=== PATIENT | female | born 1955 | race Caucasian/White ===

== ENCOUNTER → 2018-07-11 | Outpatient (CLI) | payer MEDICARE ==
--- NOTE | 2018-07-11 16:11 | Diagnostic Imaging Report ---
EXAMINATION: Low-dose lung cancer screening CT chest. INDICATION: 47-[id number]-[id number] smoking history. FINDINGS: Routine images of the thorax were obtained using the low-dose lung cancer screening protocol. There are no prior studies available for comparison. There is a small roughly 6 mm triangular opacity in the left upper lobe (image 123 of 285). This finding is of uncertain etiology although most likely benign. No other parenchymal nodule is noted. The lungs are clear. There is no evidence for failure, pneumonia, or for a pleural effusion to suggest an acute abnormality. The heart size is within normal limits. Coronary artery calcifications are evident. The aorta is not abnormally dilated. There is no obvious mediastinal or hilar adenopathy. There is a roughly 1 cm calcified node in the left infrahilar region. The thyroid gland is not well visualized. There is no obvious breast mass. According to our records, the patient has not had a mammogram. If the patient has had a recent (within the last year) mammogram elsewhere, then no further imaging will be necessary. Otherwise, mammography should be obtained. The sections through the upper abdomen fail to show any evidence for an acute abnormality. The bone windows are unremarkable for a fracture or for a destructive lesion. IMPRESSION: 1. There is a small parenchymal opacity in the left upper lobe. This is most likely a benign process. A six-month follow-up low-dose lung cancer screening exam will be recommended for further evaluation. 2. There is no acute cardiopulmonary abnormality noted. 3. The heart size is within normal limits but there is coronary artery disease. 4. There is no obvious breast mass. Recommendations as above. LUNG-RADS CATEGORY: 3 - Probably benign. Solid nodule(s): >6mm to <8mm at baseline or new 4mm to <6mm. 6 month LDCT. Dictated by: Dictated on workstation # [id number]
== END ==
LOC: RAD 13:08
PROVIDERS: ATTEND Physician Assistant
DX: Z12.2 Encounter for screening for malignant neoplasm of respiratory organs (principal); I25.10 Atherosclerotic heart disease of native coronary artery without angina pectoris; R91.8 Other nonspecific abnormal finding of lung field; F17.210 Nicotine dependence, cigarettes, uncomplicated

== ENCOUNTER → 2019-04-15 | Outpatient (CLI) | payer MEDICARE, OTHER ==
[2019-04-15 09:16] LABS: HEMOGLOBIN 15.1 G/DL (11.5-16.0); MEAN PLATELET VOLUME 11.3 FL (7.4-10.4); RED CELL DISTRIBUTION WIDTH 13.2 % (10.0-14.5); WHITE BLOOD COUNT 7.4 10^3/uL (4.3-11.0)
[2019-04-15 09:39] LABS: ALANINE AMINOTRANSFERASE 12 U/L (0-55); ALKALINE PHOSPHATASE 72 U/L (40-136); BILIRUBIN,TOTAL 0.3 MG/DL (0.1-1.0); BUN/CREATININE RATIO 12; CALCIUM 9.3 MG/DL (8.5-10.1); CARBON DIOXIDE 21 MMOL/L (21-32); CHLORIDE 111 MMOL/L (98-107); CHOLESTEROL 188 MG/DL (< 200); CREATININE SERUM 0.82 MG/DL (0.60-1.30); GFR ESTIMATED > 60; GLUCOSE 125 MG/DL (70-105); HDL CHOLESTEROL 33 MG/DL (40-60); POTASSIUM 4.4 MMOL/L (3.6-5.0); SODIUM 141 MMOL/L (135-145); TOTAL PROTEIN 6.7 GM/DL (6.4-8.2); TRIGLYCERIDES 281 MG/DL (<150); VLDL CHOLESTEROL 56 MG/DL (5-40)
--- NOTE | 2019-04-15 09:51 | Diagnostic Imaging Report ---
PA chest at 9:26. Indication: Cough The heart size is within normal limits and stable when compared to the CT chest exam of 07/11/2018. The lungs are generally clear. There is no evidence for failure, pneumonia or for pleural effusion to indicate an acute abnormality. There are a few crowded bronchovascular markings in the right infrahilar region but there is no evidence for pneumonia in this area. The previous CT low-dose lung cancer screening exam did note a small aarti-fissural density in the left midlung. That finding is not well appreciated on this study. The mediastinum is not widened. The osseous structures are intact. Impression: 1. There is no evidence for an acute cardiopulmonary abnormality. 2. I would recommend the patient have her followup low-dose lung cancer screening exam as recommended on the prior study. Dictated by: Dictated on workstation # [id number]
[2019-04-15 10:01] LABS: FREE T4 (FREE THYROXINE) 0.78 NG/DL (0.70-1.48)
== END ==
LOC: RAD 08:59
PROVIDERS: ATTEND Internal Medicine
DX: I10 Essential (primary) hypertension (principal); E11.9 Type 2 diabetes mellitus without complications; R53.83 Other fatigue; R05 Cough
CPT/HCPCS: 36415; 71045; 80053; 80061; 83036; 84439; 84443; 85027; 85652